=== PATIENT | female | born 1940 | race Caucasian/White ===

== ENCOUNTER 2020-06-17 08:14 | Emergency (ER) | payer MEDICARE, OTHER, SELFPAY ==
--- NOTE | ~2020-06-17 | CT_ITS ---
EXAMINATION: CT brain wo con DATE: 06/17/2020 11:52 INDICATION: Fall. Syncope. TECHNIQUE: Computed tomography (CT) of the head was performed without intravenous contrast. Sagittal and coronal reconstructions were performed. The mA was adjusted according to patient size. Iterative reconstruction technique was employed. The dose-length product was 605.33 mGy-cm. COMPARISON: head CT dated 01/05/2018 FINDINGS: No fracture. No acute intracranial hemorrhage, acute infarction or abnormal extra axial fluid collect ion. There is extensive scattered white matter hypoattenuation consistent with chronic small vessel i schemic disease. Symmetric prominence of the sulci consistent with mild to moderate age-appropriate diffuse cerebral volume loss. Ventricles are normal and symmetric. No mass/mass effect. Changes of bi lateral intraocular lens replacement. The orbits, paranasal sinuses and mastoid air cells are normal. IMPRESSION: 1. No fracture or acute intracranial process. 2. Stable appearance of age-related changes including mild to moderate diffuse volume loss and extens anca scattered white matter hypoattenuation consistent with chronic small vessel ischemic disease. Reviewed, dictated and finalized at location A. IMPRESSION: 1. No fracture or acute intracranial process. 2. Stable appearance of age-related changes including mild to moderate diffuse volume loss and extensive scattered white matter hypoattenuation consistent wit h chronic small vessel ischemic disease.
--- NOTE | ~2020-06-17 | XR_ITS ---
EXAMINATION: XR chest 2V DATE: 06/17/2020 12:08 INDICATION: Syncope. Right shoulder fracture post fall. TECHNIQUE: frontal and lateral views of the chest were obtained. COMPARISON: Chest radiograph dated 01/07/18 FINDINGS: A couple unchanged calcified nodules in the left upper lung zone along with calcified AP window lymph nodes consistent with old granulomatous disease. No new airspace opacities, pulmonary edema, pleural effusion or pneumothorax. The cardiomediastinal silhouette is normal. New comminuted fractures at th e right humeral head and neck. IMPRESSION: 1. No acute cardiopulmonary disease. 2. Acute appearing comminuted fracture at the right humeral head and neck. Reviewed, dictated and finalized at location A.
--- NOTE | ~2020-06-17 | XR_ITS ---
XR shoulder RT min 2V 06/17/2020 09:25 Indication: Right shoulder pain after fall Procedure: 4 views right shoulder Comparison: No prior studies for comparison. Findings: There is a comminuted right humeral head/neck fracture without significant displacement. Th ere is mild osteoarthritis of the acromioclavicular joint. No other fracture identified. Glenoid proc ess is grossly intact. No significant angulation. Impression: 1: Comminuted right humeral head/neck fracture. Reviewed, dictated and finalized at location B. Impression: 1: Comminuted right humeral head/neck fracture.
[2020-06-17 08:30] VITALS: BP 157/56; PULSE 56; RESP 13; TEMP 36.6; O2SAT 92
--- NOTE | 2020-06-17 09:06 | ED.UPPEXIN ---
HPI - Extremity Injury (Upper) General Chief Complaint: Extremity Injury, Upper Stated Complaint: fall/ rt shoulder pain Time Seen by Provider: 06/17/20 08:45 Source: patient and family Mode of arrival: ambulatory Limitations: dementia History of Present Illness HPI narrative: This patient is an 80 year old female who presents with family who presents for evaluation of right shoulder pain. Her family states patient was reaching into the shower to wipe it off when she slipped and hit right shoulder. Her family states patient was able to get into her bedroom to call them. Family reports patent is at baseline. She does not take any anticoagulation. Related Data Home Medications Medication Instructions Recorded Confirmed calcium carbonate 600 mg calcium 600 mg PO DAILY 09/06/19 (1,500 mg) tablet Allergies Allergy/AdvReac Type Severity Reaction Status Date / Time ciprofloxacin Allergy Unknown Unknown Verified 06/17/20 08:36 lisinopril Allergy Unknown Unknown Verified 06/17/20 08:36 Sulfa (Sulfonamide Allergy Unknown Dyspnea Verified 06/17/20 08:36 Antibiotics) sulfanilamide Allergy Unknown Unknown Verified 06/17/20 08:36 Review of Systems Review of Systems: All systems reviewed & are unremarkable except as noted in HPI and below Constitutional: Constitutional: Denies chills and Denies fever(s) Eyes: Eyes: Denies no additional eye complaints ENT: Denies dizziness Cardiovascular: Cardiovascular: Denies chest pain and Denies radiating jaw, neck or arm pain Respiratory: Respiratory: Denies cough, Denies dyspnea and Denies wheezing Gastrointestinal: Gastrointestinal: Denies abdominal pain, Denies nausea and Denies vomiting Neurologic: Denies dizziness, Denies headache(s) and Denies weakness PMFSH Past Medical History Medical History (Updated 06/17/20 @ 19:18 by Samantha Gracia MD) Essential (primary) hypertension Mixed hyperlipidemia Surgical History Surgical History (Updated 06/17/20 @ 19:18 by Samantha Gracia MD) H/O wrist surgery Family History Family History (Updated 02/06/19 @ 11:37 by DOCTOR UNKNOWN) Sibling Family history of malignant neoplasm, Onset Age: 70 Family history of Parkinson's disease, Onset Age: 71 Family history of coronary artery disease Carcinoma of colon Family history of heart disease in male family member before age 55 Family history of cardiovascular disease Mother Family history of Alzheimer's disease, Onset Age: 85 Patient's mother is Father Family history of coronary artery disease, Onset Age: 85 Patient's father is in good health Family history of heart disease in male family member before age 55, Onset Age: 85 Patient's father is Family history of cardiovascular disease, Onset Age: 85 Other Hypertension Social History Social History Smoking status: Never smoker Alcohol intake: never Exam Const: General: no acute distress and alert Orientation/consciousness: patient oriented x3 HENMT: Head: normocephalic and atraumatic General nose exam: No nasal polyps present Face and sinus: face symmetric Mouth: Yes Normal oral and palatal mucosa present, Yes lip normal and Yes oropharynx normal Teeth and gingiva: dentition normal Throat: posterior oropharynx normal, tonsils normal and uvula midline Eyes: EOM: EOMs intact bilaterally Neck: Neck: normal visual inspection Chest: Chest palpation & inspection: normal inspection of the chest Resp: Effort & Inspection: normal respiratory effort and no retractions Auscultation: clear to auscultation bilaterally Cardio: Rate: regular rate Rhythm: regular rhythm Heart sounds: Murmur heart sound present Skin: General skin exam: normal color Rashes: no rashes Neuro: General: patient oriented x3 and moves all extremities Extrem: Other: right shoulder tenderness, no deformity. able to move distally, neurovascularly intact Psych:
[2020-06-17 10:00] VITALS: BP 146/78; PULSE 75; RESP 18; O2SAT 100
[2020-06-17] MEDS: ACETAMINOPHEN 500 MG TABLET 1000 MG PO (10:03)
--- NOTE | 2020-06-17 11:15 | PC.NURSE ---
Upon pt sitting up at side of bed, she states I don't feel so good . pt had syncopal episode - was 'out' for about 15-30 seconds. Layed pt back on bed and applied blood pressure cuff & pulse ox. Pt stated that she felt better but not the best. Informed Mariah PAYNE and Dr Gracia.
--- NOTE | 2020-06-17 11:28 | ECG_ITS ---
Measurements Intervals [place] Rate: 56 P: 49 ID: 120 QRS: -60 QRSD: 72 T: 45 QT: 412 QTc: 401 Interpretive Statements SINUS BRADYCARDIA LEFT ANTERIOR FASCICULAR BLOCK BASELINE WANDER- I ABNORMAL ECG Electronically Signed On 06-17-2020 13:07:05 CDT by Anthony Sapp D.O.
[2020-06-17 11:59] LABS: Basophils Percent Auto 0.4 % (0.2-1.2); Eosinophils Percent Auto 0.1 % (0-4.4); Hematocrit 36.4 % (37.0-47.0); Hemoglobin 11.8 g/dL (12.0-15.0); Immature Granulocyte Absolute 0.04 K/mm3 (0.00-0.031); Immature Granulocyte Percent A 0.4 % (0-0.5); Lymphocytes Absolute Auto 0.88 K/mm3 (0.9-3.2); Lymphocytes Percent Auto 8.4 % (18.3-44.2); Mean Corpuscular HGB Conc 32.4 g/dl (32-36); Mean Corpuscular Hemoglobin 29.1 pg (26-34); Mean Corpuscular Volume 89.7 fl (80-100); Mean Platelet Volume 9.9 fl (7.4-10.4); Monocytes Absolute Auto 0.6 K/mm3 (0.1-0.6); Monocytes Percent Auto 5.5 % (2.6-8.5); Neutrophils Absolute Auto 8.9 K/mm3 (1.3-6.7); Neutrophils Percent Auto 85.2 % (45.5-73.1); Platelet Count Result 211 k/mm3 (150-375); Red Blood Count 4.06 M/mm3 (4.2-5.4); Red Cell Distribution Width 13.4 % (11.5-14.5); White Blood Count 10.4 K/mm3 (4.5-10.0)
[2020-06-17 12:13] LABS: Alanine Aminotransferase 19 U/L (4-35); Albumin Level 4.1 g/dL (3.5-5.1); Alkaline Phosphatase 85 U/L (38-126); Anion Gap 5 mmol/L (8-16); Aspartate Amino Transferase 27 U/L (14-36); Bilirubin,Total 0.3 mg/dL (0.2-1.3); Blood Urea Nitrogen 16 mg/dL (7-17); Calcium 8.9 mg/dL (8.4-10.2); Carbon Dioxide 29 mmol/L (22-30); Chloride 103 mmol/L (98-107); Estimated CRCL calculation 42 ml/min; Estimated Glomerular Filt Rate > 60; Glucose 133 mg/dL (65-105); Potassium 3.9 mmol/L (3.4-5.0); Sodium 137 mmol/L (137-145)
[2020-06-17 12:15] LABS: INR 1.1; Partial Thromboplastin Time 28.5 SECONDS (22.3-36.8); Prothrombin Time 13.7 Seconds (11.1-14.7)
[2020-06-17 12:40] VITALS: BP 136/75; PULSE 74; RESP 18; O2SAT 99
== END 2020-06-17 13:45 | disposition home or self-care (01) ==
PROVIDERS: Emergency Provider General Practice; PCP Internal Medicine
DX: S42.291A Other displaced fracture of upper end of right humerus, initial encounter for closed fracture (principal); R55 Syncope and collapse; W01.198A Fall on same level from slipping, tripping and stumbling with subsequent striking against other object, initial encounter; I10 Essential (primary) hypertension; E78.2 Mixed hyperlipidemia
CPT/HCPCS: 36415; 70450; 71046; 73030; 80053; 85025; 85610; 85730; 93005; 99284; A9270

== ENCOUNTER 2020-08-13 07:34 | Emergency (ER) | payer MEDICARE, OTHER, SELFPAY ==
[2020-08-13] VITALS (14 sets, daily range): BP systolic 182–204; BP diastolic 59–83; PULSE 59–565; RESP 10–22; TEMP 36.4; O2SAT 98–100
--- NOTE | ~2020-08-13 | CT_ITS ---
EXAMINATION: CT brain wo con DATE: 08/13/2020 08:16 INDICATION: Dizziness. TECHNIQUE: Computed tomography (CT) of the head was performed without intravenous contrast. The mA wa s adjusted according to patient size. Iterative reconstruction technique was employed. The dose-lengt h product was 605.33 mGy-cm. COMPARISON: Head CT 06/17/2020 FINDINGS: There are scattered areas of low attenuation in the cerebral white matter. There is no intr acranial hemorrhage, acute infarction, or abnormal intracranial mass lesion. The ventricles are katie l in size. There are likely changes of ocular lens replacement surgeries. There is mild mucosal thick ening in the ethmoid sinuses. The mastoid air cells are normal. IMPRESSION: 1. Stable extensive nonspecific cerebral white matter disease, which likely represents chronic small vessel ischemic disease. Reviewed, dictated and finalized at location B. [employer]RE MAKER IMPRESSION: 1. Stable extensive nonspecific cerebral white matter disease, which likely rep resents chronic small vessel ischemic disease.
--- NOTE | 2020-08-13 07:46 | ECG_ITS ---
Measurements Intervals [place] Rate: 68 P: 82 MN: 125 QRS: -72 QRSD: 74 T: 43 QT: 385 QTc: 411 Interpretive Statements SINUS RHYTHM WITH SINUS ARRHYTHMIA LEFT ANTERIOR FASCICULAR BLOCK BASELINE ARTIFACT- I, II, III, AVL, AVF ABNORMAL ECG Electronically Signed On 08-13-2020 9:15:14 PALLIATIVE CARE NURSE PRACTITIONER by Anthony Sapp D.O.
--- NOTE | 2020-08-13 07:52 | ED.DIZZY ---
HPI - Dizziness General Chief Complaint: Dizziness Stated Complaint: weakness/htn Time Seen by Provider: 08/13/20 07:39 Source: patient Mode of arrival: ambulatory Limitations: no limitations History of Present Illness HPI Narrative: Patient complaining of dizziness, nausea and not feeling well that started this morning and now resolved. On examination patient denies any dizziness, nausea and claims that she is feeling better and almost back to normal. Patient states that on the way here she started to feel better. She denies any speech or visual disturbance, focal weakness, numbness or unsteady gait. Denies any chest pain, shortness of breath, abdominal pain, nausea vomiting diarrhea or fever. Related Data Home Medications Medication Instructions Recorded Confirmed calcium carbonate 600 mg calcium 600 mg PO DAILY 09/06/19 08/09/20 (1,500 mg) tablet multivitamin 1 cap PO DAILY 06/21/20 08/09/20 Allergies Allergy/AdvReac Type Severity Reaction Status Date / Time ciprofloxacin Allergy Unknown Unknown Verified 08/13/20 07:48 lisinopril Allergy Unknown Unknown Verified 08/13/20 07:48 Sulfa (Sulfonamide Allergy Unknown Dyspnea Verified 08/13/20 07:48 Antibiotics) sulfanilamide Allergy Unknown Unknown Verified 08/13/20 07:48 acetaminophen [From [employer]] AdvReac Severe Confusion Verified 08/13/20 07:48 hydrocodone [From [employer]] AdvReac Severe Confusion Verified 08/13/20 07:48 Review of Systems Review of Systems: All systems reviewed & are unremarkable except as noted in HPI and below Constitutional: Constitutional: Denies body ache(s), Denies chills, Denies excessive sweating, Denies fatigue, Denies fever(s), Denies headache(s), Denies lethargy, Denies malaise, Denies weakness and Denies weight loss Eyes: Eyes: Denies blurry vision, Denies change in vision and Denies loss of vision ENT: Denies dizziness, Denies ear discharge, Denies headache(s), Denies lip swelling, Denies epistaxis, Denies nasal congestion, Denies neck pain, Denies throat swelling and Denies tongue swelling Cardiovascular: Cardiovascular: Denies chest pain, Denies chest pain at rest, Denies chest pain with activity, Denies diaphoresis, Denies rapid heart rate, Denies edema, Denies irregular heart rhythm, Denies lightheadedness, Denies palpitations, Denies dyspnea and Denies dyspnea on exertion Respiratory: Respiratory: Denies chest congestion, Denies cough, Denies hemoptysis, Denies dyspnea and Denies dyspnea on exertion Gastrointestinal: Gastrointestinal: Denies abdominal pain, Denies melena, Denies hematochezia, Denies diarrhea, Denies nausea, Denies vomiting and Denies hematemesis Musculoskeletal: Musculoskeletal: Denies abnormal gait, Denies deformity, Denies joint swelling, Denies limited range of motion, Denies neck pain and Denies numbness Neurologic: Denies Abnormal speech present, Denies abnormal gait, Denies confusion, Denies headache(s), Denies focal weakness, Denies loss of vision, Denies numbness, Denies Other visual disturbances, Denies Sensory deficit (Neuro) and Denies weakness Psychiatric: Psychiatric: Denies confusion, Denies depression, Denies auditory hallucinations, Denies homicidal ideation and Denies suicidal ideation Endocrine: Endocrine: Denies cold intolerance, Denies excessive sweating, Denies fatigue, Denies heat intolerance and Denies palpitations Hematologic/Lymphatic: Hematologic/Lymphatic: Denies easy bleeding and Denies easy bruising Allergic/Immunologic: Allergic/Immunologic: Denies lip swelling, Denies throat swelling and Denies tongue swelling PMFSH Past Medical History Medical History Arthritis Dizziness Essential (primary) hypertension Mixed hyperlipidemia Proximal humerus fracture Vertigo Surgical History Surgical History H/O wrist surgery History of hip surgery Family History Family History (Review
[2020-08-13] MEDS: SODIUM CHLORIDE 0.9% IV 1,000 ML 999 ML IV CONT (07:59)
[2020-08-13 08:19] LABS: Basophils Absolute Auto 0.1 K/mm3 (0.0-0.1); Basophils Percent Auto 1.3 % (0.2-1.2); Eosinophils Absolute Auto 0.1 K/mm3 (0-0.3); Hematocrit 41.2 % (37.0-47.0); Hemoglobin 13.5 g/dL (12.0-15.0); Immature Granulocyte Absolute 0.01 K/mm3 (0.00-0.031); Immature Granulocyte Percent A 0.2 % (0-0.5); Lymphocytes Absolute Auto 1.37 K/mm3 (0.9-3.2); Lymphocytes Percent Auto 29.6 % (18.3-44.2); Mean Corpuscular HGB Conc 32.8 g/dl (32-36); Mean Corpuscular Hemoglobin 29.5 pg (26-34); Mean Platelet Volume 9.8 fl (7.4-10.4); Monocytes Absolute Auto 0.3 K/mm3 (0.1-0.6); Monocytes Percent Auto 6.3 % (2.6-8.5); Neutrophils Absolute Auto 2.8 K/mm3 (1.3-6.7); Neutrophils Percent Auto 59.6 % (45.5-73.1); Platelet Count Result 307 k/mm3 (150-375); Red Blood Count 4.58 M/mm3 (4.2-5.4); Red Cell Distribution Width 13.6 % (11.5-14.5); White Blood Count 4.6 K/mm3 (4.5-10.0)
[2020-08-13 08:20] LABS: INR 0.9; Prothrombin Time 12.3 Seconds (11.1-14.7)
[2020-08-13 08:21] LABS: Partial Thromboplastin Time 31.2 SECONDS (22.3-36.8)
[2020-08-13 08:26] LABS: Anion Gap 7 mmol/L (8-16); Blood Urea Nitrogen 12 mg/dL (7-17); Calcium 9.9 mg/dL (8.4-10.2); Carbon Dioxide 33 mmol/L (22-30); Chloride 102 mmol/L (98-107); Estimated CRCL calculation 42 ml/min; Estimated Glomerular Filt Rate > 60; Glucose 108 mg/dL (65-105); Potassium 3.8 mmol/L (3.4-5.0); Sodium 142 mmol/L (137-145)
[2020-08-13 08:39] LABS: Troponin I < 0.012 ng/mL (0.000-0.034)
[2020-08-13 08:53] LABS: Add Urine Microscopic? YES; Appearance Urine Clear (Clear); Bilirubin Urine Negative (Negative); Blood Urine Negative (Negative); Color Urine Straw (Yellow); Glucose Urine UA Negative (Negative); Ketones Urine Negative (Negative); Leukocyte Esterase Ur Trace LEU/UL (Negative); Nitrate Urine Negative (Negative); Protein Urine Negative (Negative); RBC Urine 0-2 /hpf (0-2); Urobilinogen Urine Negative mg/dL (<2.0)
--- NOTE | 2020-08-13 09:16 | PC.NURSE ---
Up to bathroom. c/o dizziness when up.
== END 2020-08-13 10:46 | disposition home or self-care (01) ==
PROVIDERS: Emergency Provider Emergency Medicine; PCP Internal Medicine
DX: R42 Dizziness and giddiness (principal); I10 Essential (primary) hypertension; M19.90 Unspecified osteoarthritis, unspecified site; R94.31 Abnormal electrocardiogram [ECG] [EKG]; R90.82 White matter disease, unspecified; E78.2 Mixed hyperlipidemia
CPT/HCPCS: 36415; 51701; 70450; 80048; 81001; 84484; 85025; 85610; 85730; 93005; 96360; 99284; J7030

== ENCOUNTER → 2020-11-01 15:18 | Outpatient (CLI) | payer MEDICARE, OTHER, SELFPAY ==
--- NOTE | ~2020-11-01 | CT_ITS ---
EXAMINATION: CT shoulder RT wo con DATE: 11/01/2020 15:45 INDICATION: Comminuted fracture of the right humeral head and neck with limited range of motion and r ight arm pain. TECHNIQUE: High resolution computed tomography (CT) of the right shoulder was performed without intra venous contrast. Additional sagittal and coronal reconstructions were performed. Automated exposure c ontrol and iterative reconstruction technique were employed. The dose-length product was 161.52 mGy-c m. COMPARISON: Right shoulder radiographs dated 06/21/2020 FINDINGS: Again seen is a comminuted fracture of the proximal right humerus. The greater tuberosity fracture saldana s healed with solid fusion with the main humeral head fragment. The fracture plane along the surgical neck remains ununited. There is suggestion of secondary osteolysis along both sides of the surgical neck fracture plane with some proximal migration of the distal fragment into the caudal aspect of the humeral head fragment. The fracture margins now appear more smooth with some linear sclerosis sugges ting progression towards nonunion. There is an additional ununited fracture fragment at the axillary recess. The humeral head remains normally centered over the glenoid. Small right glenohumeral joint e ffusion. Mild to moderate acromioclavicular osteoarthritis. Visualized portion of the right mid to up per lung are clear. IMPRESSION: 1. Comminuted fractures of the proximal right humerus with solid healing between the greater tuberosi ty and main humeral head fragments. 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 Reviewed, dictated and finalized at location B. [employer] IMPRESSION: 1. Comminuted fractures of the proximal right humerus with solid healing betwee n the greater tuberosity and main humeral head fragments. 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
== END ==
PROVIDERS: Visit Provider Orthopaedic Surgery
DX: M25.511 Pain in right shoulder (principal); S42.294A Other nondisplaced fracture of upper end of right humerus, initial encounter for closed fracture
CPT/HCPCS: 73200

== ENCOUNTER 2022-06-25 08:06 | Outpatient (CLI) | payer MEDICARE, OTHER, SELFPAY ==
--- NOTE | ~2022-06-25 | DEXA_ITS ---
Bone Density Report Name: FARHANA RASHID Age: 82 Sex: Female Ethnicity: White Date of : 1940 Indication: postmenopausal; screening for osteoporosis; height loss; prior fracture; cancer; Referring Provider: BERNARDO GUTIERREZ Study: Bone densitometry was performed. Exam Date: June 25, 2022 Accession number: [id number] Bone Density: Region BMD T-score Z-score Classification AP Spine(L1-L4) 1.039 -0.1 2.8 Normal Femoral Neck (Left) 0.563 -2.6 -0.1 Osteoporosis Total Hip (Left) 0.724 -1.8 0.5 Osteopenia World Health Organization criteria for BMD impression classify patients as: Normal (T-score at or above -1.0), Osteopenia (T-score between -1.0 and -2.5), or Osteoporosis (T-score at or below -2.5). 10-year Fracture Risk: FRAX not reported because: Some T-score for Spine Total or Hip Total or Femoral Neck at or below -2.5 Prior hip or vertebral fracture Clinical Information Provided by Patient: Have had a previous hip or vertebral fracture Has had a low trauma fracture Has used the following medications: Vitamin D, Calcium Has the following medical conditions: Cancer Patient maximum height was 62 Menopause Age: 51 No regular weight bearing exercise Onset of menses at age 11 Number of children 3 Impression: The patient has established osteoporosis, based on the Left Femoral Neck T-score and the existence of a prior fracture. The patient has risk factors, including: previous fracture. Discussion: HIGH RISK OF FRACTURE. BONE DENSITY IS UNDESIRABLY LOW AT ONE OR MORE SKELETAL SITES, CONSISTENT WITH POSTMENOPAUSAL OSTEOPOROSIS. This patient's lowest T-score, in a patient who has previously fractured, meets the World Health Organization's (WHO) criteria for severe osteoporosis. In untreated patients, the risk of osteoporotic fracture increases approximately two-fold for each 1.0 SD decrease in T-score. Low bone density is not the only risk factor for fracture; also consider factors such as patient's age, frailty or poor health, risk of falling, risk of injury, previous osteoporotic fracture, family history of osteoporosis, cigarette smoking, low body weight, etc. Not everyone with low bone mineral density has osteoporosis; osteomalacia and other metabolic bone disorders should also be considered. Patients who have osteoporosis should be evaluated for specific diseases and conditions (secondary causes) that may cause or contribute to bone loss. The [place] [employer] Endocrinologists (AACE) and National Osteoporosis Foundation (NOF) recommend pharmacologic intervention for all postmenopausal women with a previous hip or vertebral fracture and a T-score in this range. The patient should follow a healthful lifestyle (good nutrition with adequate calcium and vitamin D, and appropriate weight-bearing exercise). Follow-Up: Consider
--- NOTE | ~2022-06-25 | MM_ITS ---
EXAMINATION: MM screening ric BI w darryn HISTORY: Screening mammogram, history of left breast cancer TECHNIQUE: Craniocaudal and mediolateral oblique 3-D tomosynthesis images were obtained and synthetic 2-D images were generated. CAD analysis was submitted and interpreted. COMPARISON: 09/13/2019, 09/06/2018, 08/19/2017 BREAST PARENCHYMAL COMPOSITION: The breasts are heterogeneously dense, which may obscure small masses . FINDINGS: Stable lumpectomy changes are again noted in the left breast. There is no suspicious mass, calcification, or architectural distortion to suggest malignancy in either breast. There has been no suspicious interval change. IMPRESSION: 1. No mammographic evidence of malignancy. 2. Recommend routine screening mammography in one year. BI-RADS Category 2: Benign finding(s). Reviewed, dictated and finalized at location A.
== END 2022-06-25 08:07 | disposition home or self-care (01) ==
PROVIDERS: PCP Internal Medicine; Visit Provider Nurse Practitioner
DX: Z12.31 Encounter for screening mammogram for malignant neoplasm of breast (principal); Z78.0 Asymptomatic menopausal state; M81.0 Age-related osteoporosis without current pathological fracture; M85.852 Other specified disorders of bone density and structure, left thigh
CPT/HCPCS: 77063; 77067; 77080